=== PATIENT | male | born 1995 | race African-American/Black ===

== ENCOUNTER 2018-08-23 23:55 | Emergency (ER) | payer SELFPAY ==
[2018-08-24] MEDS ORDERED: DOXYCYCLINE HYCLATE 100 MG TABLET PO ONE (03:05)
--- NOTE | 2018-08-24 03:06 | ER Document Report ---
ED General - General Chief Complaint: abcess Stated Complaint: THROAT PAIN Time Seen by Provider: 08/24/18 02:00 Notes: Patient is a pleasant 23-year-old male who presents with complaints of a abscess just below the chin. Patient is never had this before. He says it started a small knot few days ago and has enlarged. No difficulty breathing. No difficulty swelling. No fevers. No other complaints at this time. TRAVEL OUTSIDE OF THE [place] IN LAST 30 DAYS: No - Related Data Allergies/Adverse Reactions: No Known Allergies Allergy (Unverified 08/24/18 00:40) Past Medical History - Social History Smoking Status: Never Smoker Frequency of alcohol use: None Drug Abuse: None Family History: Reviewed & Not Pertinent Review of Systems - Review of Systems Notes: My Normal Review Basic REVIEW OF SYSTEMS: CONSTITUTIONAL : Denies fever, chills, or sweats. Denies recent illness. EENT: Small subcutaneous abscess below chin. RESPIRATORY: Denies cough, cold, or chest congestion. Denies shortness of breath, difficulty breathing, or wheezing. GASTROINTESTINAL: No vomiting. NEUROLOGICAL: Denies altered mental status or loss of consciousness. Denies headache. D ALL OTHER SYSTEMS REVIEWED AND NEGATIVE. Physical Exam - Vital signs Vitals: Temp Pulse Resp BP Pulse Ox 99.1 F 83 16 156/68 H 98 08/24/18 00:40 08/24/18 00:40 08/24/18 00:40 08/24/18 00:40 08/24/18 00:40 - Notes Notes: General Appearance: Well nourished, alert, cooperative, no acute distress, no obvious discomfort. Vitals: reviewed, See vital signs table. Head: no swelling or tenderness to the head Eyes: PERRL, EOMI, Conjuctiva clear Mouth: No decreasd moisture Neck: Supple, no neck tenderness, patient has a 2 cm area of induration and subcutaneous tissue below his chin. Bedside ultrasound does show a very small fluid collection. Erythema localized to the area of induration. No spreading swelling beyond the area of induration. Skin: warm, dry, appropriate color, no rash Neuro: speech clear, oriented x 3, normal affect, responds appropriately to questions. Course - Re-evaluation Re-evalutation: 08/24/18 08:59 Abscess was incised and drained. Approximately 1.5 mL's of purulent drainage was expressed. Patient tolerated well. Abscess was completely subcutaneous. Patient had a box. I informed him to very low threshold to return to ER if he has increasing swelling, spreading redness, fevers, difficulty breathing, or difficulty swallowing.. Patient agrees with plan will be discharged home - Vital Signs Vital signs: Temp Pulse Resp BP Pulse Ox 98.5 F 80 20 145/61 H 100 08/24/18 03:15 08/24/18 03:15 08/24/18 03:15 08/24/18 03:15 08/24/18 03:15 Procedures - Incision and Drainage neck Type: Simple Blade size: 11 I&D procedure: Chlorprep applied Incision Method: Incision made by scalpel Amount/type of drainage: 1.5 mls of purulent drainage Discharge - Discharge Clinical Impression: Abscess Condition: Good Disposition: HOME, SELF-CARE Additional Instructions: We have incised and drained your abscess. Please gently clean with soap and water. Please leave the dressing I placed on you until about lunchtime tomorrow. Please return to ER immediately if you have fevers, vomiting, increased swelling or pain over the affected area, or if you have any further concerns that you are worsening. Please take the antibiotics as prescribed. Doxycycline will make your skin more sensitive to the sun so please make sure you keep your skin covered or wear sunscreen whenever out in the sun. Prescriptions: RX: Doxycycline Hyclate 100 mg PO BID #14 capsule
[2018-08-24 03:21] VITALS: BP 145/61
== END 2018-08-24 03:16 | disposition home or self-care (01) ==
LOC: ER 23:55
DX: L02.11 Cutaneous abscess of neck (principal)
CPT/HCPCS: 87070; 87075; 87186; 87205; 99282